=== PATIENT | male | born 1995 | race Caucasian/White ===

== ENCOUNTER 2017-02-25 12:04 | Emergency (ER) | payer SELFPAY ==
--- NOTE | 2017-03-12 15:51 | ER ---
ADMIT: 02/25/2017 RM/LOC: ER [facility] MR#: [id number] [facility] [address] [place], [place] [id number] SY[address]NAMRATA [address] [place] [address] Emergency Room Report SEX: M AGE: 21 : 1995 DATE: 02/25/2017 ADDENDUM: CHIEF COMPLAINT: Anxiety. HISTORY OF PRESENT ILLNESS: This is a 21-year-old male who said he was working outside today on his porch. He drinks about 18 pack of beer daily. Today, he said he has had 5 beers and also drank an [employer] drink. He said he just feels very anxious, short of breath, having chest pain. So came to the ER. COURSE IN THE EMERGENCY ROOM: Tox screen showed him positive for amphetamines. He does admit to do methamphetamine on , but does not say he did it recently. Urine showed 5 red blood cells. BMP was normal except for potassium of 3.3, glucose of 177, GFR of 78. EKG showed sinus tach at a rate of 32, over-read by Dr. Pedroza. CBC was normal. The patient has been given 2 L of normal saline and 1 mg Ativan. He feels significantly better, feels okay to go home. CLINICAL IMPRESSION: 1. Alcohol abuse. 2. Amphetamine usage. DISPOSITION: Stable at discharge. We will follow up as needed. I did tell him about [facility] if he wants to go through detox and treatment. I also advised him not to use any drugs. GIOVANNI Li / Finn Maradiaga MD / manavl JOB #: [id number] CC: Javier Pedroza MD, Attending Physician UNKNOWN, Family Physician
== END 2017-02-25 15:20 | disposition home or self-care (01) ==
LOC: ER 12:04
DX: F10.10 Alcohol abuse, uncomplicated (principal); F15.90 Other stimulant use, unspecified, uncomplicated; F17.210 Nicotine dependence, cigarettes, uncomplicated